=== PATIENT | female | born 1980 | race Two or more races ===

== ENCOUNTER 2022-04-24 03:01 | Emergency (ER) | payer SELFPAY ==
[~2022-04-24] VITALS: Ht 165.1 cm; Wt 65.8 kg
--- NOTE | 2022-04-24 03:01 | NUR ---
[id number] from home for high blood pressure, sbp 200's on arrival 180's in triage, pt [id number], denies sob/cp. pending er provider brett
[2022-04-24] MEDS ORDERED: hydrALAZINE HCL IV 20 MG VIAL ONE (03:58)
--- NOTE | 2022-04-24 04:00 | NUR ---
IV LINE ESTABLISHED, [id number]
[2022-04-24 04:08] LABS: BASOPHILS % (AUTO) 0.3 % (0.0-2.0); EOSINOPHILS % (AUTO) 1.2 % (0.0-6.0); HEMATOCRIT 44 % (33-45); HEMOGLOBIN 14.6 g/dL (11.5-14.8); LYMPHOCYTES # (AUTO) 1.6 K/uL (0.8-4.8); LYMPHOCYTES % (AUTO) 25.4 % (20.0-44.0); MEAN CORPUSCULAR HGB CONC 33 g/dl (31.0-36.0); MEAN CORPUSCULAR VOLUME 97 fL (82-100); MONOCYTES # (AUTO) 0.5 K/uL (0.1-1.30); MONOCYTES % (AUTO) 8.6 % (2.0-12.0); NEUTROPHILS # (AUTO) 3.9 K/uL (1.8-8.9); NEUTROPHILS % (AUTO) 64.5 % (43.0-81.0); PLATELET COUNT (AUTO) 159 K/uL (150-450); RED BLOOD CELL COUNT(AUTO) 4.59 MIL/uL (4.0-5.2); WHITE BLOOD COUNT (AUTO) 6.1 K/uL (4.3-11.0)
[2022-04-24] MEDS: hydrALAZINE HCL IV 20 MG VIAL IV ONE (04:08)
--- NOTE | 2022-04-24 04:11 | NUR ---
[id number] [phone]
[2022-04-24 04:18] LABS: CALCIUM, SERUM 8.7 mg/dL (8.5-10.1); CARBON DIOXIDE 26 mmol/L (21-32); CHLORIDE 106 mmol/L (98-107); CREATININE 0.7 mg/dL (0.6-1.3); GLUCOSE 97 mg/dL (74-106); POTASSIUM 3.3 mmol/L (3.5-5.1); SODIUM SERUM 140 mmol/L (136-145); UREA NITROGEN, BLOOD 7 mg/dL (7-18)
[2022-04-24 04:24] LABS: ALANINE AMINOTRANSFERASE 20 U/L (12-78); ALBUMIN 3.6 g/dL (3.4-5.0); ALKALINE PHOSPHATASE 41 U/L (46-116); ASPARTATE AMINOTRANSFERASE 17 U/L (15-37); BILIRUBIN,DIRECT 0.2 mg/dL (0.0-0.2); BILIRUBIN,TOTAL 0.7 mg/dL (0.2-1.0); TOTAL PROTEIN, SERUM 6.7 g/dL (6.4-8.2)
--- NOTE | 2022-04-24 05:01 | NUR ---
Patient does not wish to proceed with medical care recommended by Dr. Anthony. Patient given information related to possible complications, up to and including , which could occur as a result of leaving the hospital at this time. Patient verbalizes understanding of risks involved due to leaving against medical advice. Patient has signed AMA form.
[2022-04-24 05:54] VITALS: BP 176/109
== END 2022-04-24 05:54 | disposition left against medical advice (07) ==
LOC: ER 03:05
DX: I10 Essential (primary) hypertension (principal); R42 Dizziness and giddiness
CPT/HCPCS: 99285; 96374; 70450; 71045; 93005; 85025; 80048; 80076; 36415; 84484; 85730; J0360